=== PATIENT | male | born 1975 | race Caucasian/White ===

== ENCOUNTER 2021-10-22 00:01 | Emergency (ER) | payer OTHER ==
[2021-10-22 01:35] LABS: BASOPHIL 0.7 % (0-2); HCT 42.2 % (42.0-52.0); HGB 13.4 g/dl (13.2-18.0); MCH 26.7 pg (25.0-31.0); MCHC 31.8 g/dL (32.0-36.0); MCV 84.1 fL (78.0-100.0); MONOCYTE 9.4 % (0-12); MPV 11.1 fL (6.0-9.5); NEUTROPHIL 59.3 % (41-80); NRBC 0; PLT 133 K/uL (150-400); RBC 5.02 M/uL (4.70-6.00); RDW 14.7 % (11.5-14.0); WBC 6.8 K/uL (4.0-10.5)
[2021-10-22 01:58] LABS: ALKALINE PHOSHATASE 75 U/L (46-116); ALT 99 U/L (16-63); AST 91 U/L (15-37); BILIRUBIN - TOTAL 0.5 mg/dL (0.2-1.0); BUN 16 mg/dL (7-18); BUN/CREAT RATIO (CALC) 22.5 RATIO; CHLORIDE 98 mmol/L (98-107); CO2 (BICARBONATE) 25 mmol/L (21-32); CREATININE 0.71 mg/dL (0.67-1.17); GLOBULIN (CALCULATION) 3.1 g/dL; GLUCOSE 81 mg/dL (74-106); POTASSIUM 3.6 mmol/L (3.5-5.1); TOTAL PROTEIN 7.1 g/dL (6.4-8.2)
[2021-10-22 02:03] LABS: ACETAMINOPHEN (TYLENOL) < 2.0 ug/mL (10.0-30.0)
[2021-10-22 02:23] LABS: BILIRUBIN NEGATIVE (NEGATIVE); BLOOD NEGATIVE Ery/uL (NEGATIVE); CLARITY CLEAR (CLEAR); COLOR YELLOW (YELLOW); GLUCOSE (U) NORMAL (NORMAL); LEUKOCYTES NEGATIVE Leu/uL (NEGATIVE); NITRITE NEGATIVE (NEGATIVE); PROTEIN NEGATIVE (NEGATIVE); SPECIFIC GRAVITY >=1.030 (1.001-1.030); UROBILINOGEN 0.2 mg/dL (0.2-1.0)
[2021-10-22 02:32] LABS: BARBITURATES NEGATIVE (NEGATIVE); ECSTASY (MDMA) NEGATIVE (NEGATIVE); MARIJUANA (THC) NEGATIVE (NEGATIVE); METHADONE NEGATIVE (NEGATIVE); OPIATES NEGATIVE (NEGATIVE)
[2021-10-22 02:33] LABS: AMPHETAMINES NEGATIVE (NEGATIVE); OXYCODONE NEGATIVE (NEGATIVE)
== END 2021-10-22 10:12 | disposition other institution (70) ==
LOC: FER 00:01
PROVIDERS: Internal Medicine
DX: F20.0 Paranoid schizophrenia (principal); E87.1 Hypo-osmolality and hyponatremia; F17.210 Nicotine dependence, cigarettes, uncomplicated; Z23 Encounter for immunization; Z20.822 Contact with and (suspected) exposure to COVID-19
CPT/HCPCS: 36415; 80053; 80305; 81003; 85025; 90471; 90715; G0480; U0002